=== PATIENT | female | born 1995 | race Caucasian/White ===

== ENCOUNTER 2017-03-30 21:33 | Observation (INO) ==
[2017-03-30 22:13] LABS: Amphetamine Screen,Urine Negative ng/mL (Cutoff=1000); Barbiturate Screen,Urine Negative ng/mL (Cutoff=200); Benzodiazepines Screen,Urine Negative ng/mL (Cutoff=200); Cannabinoid Screen,Urine Negative ng/mL (Cutoff = 50); Cocaine Screen,Urine Negative ng/mL (Cutoff= 300); Opiate Screen,Urine Negative ng/mL (Cutoff=300); Phencyclidine Screen,Urine Negative ng/mL (Cutoff=25)
--- NOTE | 2017-03-30 23:16 | OB/GYN History & Physical ---
Date of Encounter: 03/31/17 Time of Encounter: 23:13 Assessment and Plan (1) 39 weeks gestation of Status: Acute (2) Uterine contractions Status: Acute SVE unchanged after several repeat exams. Discharge home with precautions. History of Present Illness Chief complaint: contractions HPI: Ms. mendoza is a 21 year old female presenting at 39w6d with c/o contractions every 4-6 minutes since 7:30 this evening. She reports having so much pain with the contractions that she is nauseated. She denies any other complaints. Good FM. This has been uncomplicated. GBS negative Blood type A positive Hep B negative RPR negative Hep C negative Rubella immune HIV negative Past Med Surg Social Fam HX - Past Medical History Medical history: no medical history Psychiatric history: anxiety, depression - Social History Smoking Status: Never smoker Smokeless Tobacco Status: No Alcohol use: none - Family History Mother Hx Family Cardiac Disorders: Yes (HTN) Obstetrical History - Pregnancies : 1 Medications and Allergies Ferrous Sulfate [Iron] 1 tab PO DAILY 03/30/17 [History] Vit/Iron Fumarate/FA [ Tablet] 1 tab PO DAILY 03/30/17 [History ] 3 Allergy/AdvReac Type Severity Reaction Status Date / Time Penicillins Allergy Rash Verified 03/30/17 21:48 sulfamethoxazole Allergy Swelling Verified 03/30/17 21:48 [From Bactrim] of Lip/Tongue/Throat trimethoprim [From Bactrim] Allergy Swelling Verified 03/30/17 21:48 of Lip/Tongue/Throat Review of System OB All systems PM: reviewed and no additional remarkable complaints except as stated Exam - Constitutional Constitutional: well developed, well nourished, moderate distress - HEENT HEENT: Mucus Membranes Moist - Lungs Respiratory exam: CTAB - Cardiovascular Cardiovascular exam: RRR - Abdomen Abdomen: Present: gravid, non tender - Extremities Extremities exam: normal inspection - Vulva Vulva: bilateral: normal - Vagina Vagina: Present: normal moisture - Cervix Dilation: 3 Effacement: 90 Station: -1 - Uterus Uterus exam: Present: normal size - Anus/Rectum Anus/Rectum: Present: normal perianal skin Results All other labs normal. - VTE Reasons for not Prescribing Prophylaxis: Treatment not Indicated - Low risk for VTE
== END 2017-03-31 01:38 | disposition home or self-care (01) ==
LOC: 1NENULAB
PROVIDERS: ADMIT Obstetrics & Gynecology; ATTEND Obstetrics & Gynecology

== ENCOUNTER 2017-03-31 21:30 | Inpatient (IN) ==
[~2017-03-31 21:30] MED LIST: *HR* Nalbuphine 20 MG/ML AMPUL IVP PRN; Famotidine 20 MG/2 ML VIAL IVP PRN; Metoclopramide 10 MG/2 ML VIAL IVP PRN; Naloxone 0.4 MG/ML INJ IVP PRN; Ringers Solution, Lactated 1,000 ML IVC SCH
[2017-03-31 21:59] LABS: Basophils % 0.2 %; Eosinophils % 0.1 %; Hematocrit 35.8 % (35.3-44.9); Hemoglobin 11.6 g/dL (11.5-15.4); Immature Granulocytes % 0.6 % (0-4); Lymphocytes # 1.7 K/mcL (0.6-4.6); Lymphocytes % 13.4 %; Mean Corpuscular HGB Conc 32.4 g/dL (31.6-35.5); Mean Corpuscular Hemoglobin 29.8 pg (28.0-33.3); Mean Platelet Volume 12.9 fL (9.4-12.4); Monocytes # 0.6 K/mcL (0.0-1.3); Monocytes % 4.9 %; Neutrophils # 10.2 K/mcL (1.6-8.9); Platelet Count 255 K/mcL (140-400); Red Blood Count 3.89 M/mcL (3.82-4.97); Red Cell Distribution Width 13.5 % (11.5-14.5); Segmented Neutrophils % 80.8 %
[2017-03-31 22:12] LABS: Amphetamine Screen,Urine Negative ng/mL (Cutoff=1000); Barbiturate Screen,Urine Negative ng/mL (Cutoff=200); Benzodiazepines Screen,Urine Negative ng/mL (Cutoff=200); Cannabinoid Screen,Urine Negative ng/mL (Cutoff = 50); Cocaine Screen,Urine Negative ng/mL (Cutoff= 300); Opiate Screen,Urine Negative ng/mL (Cutoff=300); Phencyclidine Screen,Urine Negative ng/mL (Cutoff=25)
[2017-03-31] MEDS ORDERED: Epidural Premix (fent/bupiv) 110 ML EP SCH (22:15)
[2017-03-31] MEDS ORDERED: Epidural Premix (fent/bupiv) 110 ML EP ONE (22:16)
--- NOTE | 2017-03-31 22:34 | OB/GYN History & Physical ---
Date of Encounter: 03/31/17 Time of Encounter: 22:15 Assessment and Plan (1) 40 weeks gestation of Current visit: Yes Status: Acute (2) Uterine contractions Current visit: Yes Status: Acute IUP at 40 weeks GA Early labor GBS negative intact membranes with bulging bag Fetus Category I tracing Plan: Admit to L&D IV bolus followed by maintenance fluids Routine labs CEFM VS per protocol May have nubain and/or epidural for pain control prn 1000ml LR bolus for epidural Anesthesia consult for epidural Anticipate POC per consult with Dr. Henry. History of Present Illness Chief complaint: Contractions HPI: Ms. Frias is a 21 year old , EDB 03/31/2017 by LMP 40 weeks gestation, who presents with continued contractions from previous visit yesterday. 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 Denies PMH PSH includes tonsillectomy and remote colonoscopy (she reports was part of a workup for rectal bleeding). Alliergies to PCN (rash) and bactrim (swelling of lips/tongue/throat) Current medications include PNV and iron supplementation labs are as follows: A+/antibody negative Parvovirus: IgG 3.70 IgM 0.25 - indicates immunity GBS negative Hep B negative Hep C negative RPR NR GC/CL negative Rubella immune Varicella immune Past Med Surg Social Fam HX - Past Medical History Medical history: no medical history Psychiatric history: anxiety, depression - Past Surgical History Surgical History: other (tonsillectomy) - Social History Smoking Status: Never smoker Smokeless Tobacco Status: No Alcohol use: none Drug use: none - Family History Mother Hx Family Cardiac Disorders: Yes (HTN) Obstetrical History - Pregnancies : 1 Para: 0 Term: 0 : 0 Ab's: 0 Livin - History/Complications History/Complications: Category I tracing baseline 150 with accelerations moderate variability toco ctx q 2-3 minutes Medications and Allergies Ferrous Sulfate [Iron] 1 tab PO DAILY 03/30/17 [History] Vit/Iron Fumarate/FA [ Tablet] 1 tab PO DAILY 03/30/17 [History ] 3 Allergy/AdvReac Type Severity Reaction Status Date / Time Penicillins Allergy Rash Verified 03/31/17 21:16 sulfamethoxazole Allergy Swelling Verified 03/31/17 21:16 [From Bactrim] of Lip/Tongue/Throat trimethoprim [From Bactrim] Allergy Swelling Verified 03/31/17 21:16 of Lip/Tongue/Throat Review of System OB All systems PM: reviewed and no additional remarkable complaints except as stated Exam - Vital Signs Vital signs: Initial Vital Signs Temp Pulse Resp BP 97.4 F L 117 16 134/86 03/31/17 21:23 03/31/17 21:23 03/31/17 21:23 03/31/17 21:23 - Constitutional Constitutional: well developed, well nourished, average body habitus, moderate distress - HEENT HEENT: PERRL, Normocephaly, Mucus Membranes Moist - Neck Neck exam: full ROM, normal inspection, trachea midline - Lungs Respiratory exam: CTAB - Cardiovascular Cardiovascular exam: RRR, +S1, +S2 - Breasts Breast: bilateral: normal - Abdomen Abdomen: Present: bowel sounds normal, gravid, non tender - Extremities Extremities exam: full ROM, warm, radial pulses palpable and symmetrical Deep Tendon Reflex Grade: 2+ Normal - Cervix Dilation: 4 (Per RN) Effacement: 100 (Per RN) Station: -2 - Uterus Uterus exam: Present: normal size, normal contour Results Result Diagrams: 03/31/17 21:50 Abnormal lab results WBC 12.6 K/mcL (4.3-11.1) H 03/31/17 21:50 MPV 12.9 fL (9.4-12.4) H 03/31/17 21:50 Neutrophils # 10.2 K/mcL (1.6-8.9) H 03/31/17 21:50 All other labs normal. - VTE Reasons for not Prescribing Prophylaxis: Treatment not Indicated - Low risk for VTE
--- NOTE | 2017-03-31 22:57 | Anesthesia Evaluation PreOp ---
Date of Encounter: 03/31/17 Time of Encounter: 22:20 - Past History Planned Operation: zoe Cardiac History: Denies any Significant Hx Pulmonary History: Denies Any Significant HX CLIENT DEVELOPMENT DIRECTOR History: Denies Any Significant HX Other Medical History: Denies Any Significant HX Anesthesia History: No Prior Anesthetic Complications : Yes Test: Positive Alcohol Use: none Drug use: none Medications and Allergies Ferrous Sulfate [Iron] 1 tab PO DAILY 03/30/17 [History] Vit/Iron Fumarate/FA [ Tablet] 1 tab PO DAILY 03/30/17 [History ] 3 Allergy/AdvReac Type Severity Reaction Status Date / Time Penicillins Allergy Rash Verified 03/31/17 21:16 sulfamethoxazole Allergy Swelling Verified 03/31/17 21:16 [From Bactrim] of Lip/Tongue/Throat trimethoprim [From Bactrim] Allergy Swelling Verified 03/31/17 21:16 of Lip/Tongue/Throat - Meds/Allergy Pre-op Review Medications Reviewed: Yes Allergies Reviewed: Yes Beta Blockers on Current Med List: No Anesthesia Results - Labs 03/31/17 21:50 Anesthesia Exam Height: 64 Weight: 73.8 Pain Scale: 8 - HEENT Pupil (Motor): Pupils equal Mallampati: II Teeth: Normal Oral Opening: Greater than 3 - CLIENT DEVELOPMENT DIRECTOR LOC: Oriented CLIENT DEVELOPMENT DIRECTOR Motor: Normal RUE, Normal LUE, Normal RLE, Normal LLE, Normal Face CLIENT DEVELOPMENT DIRECTOR Sensory: Normal: RUE, LUE, RLE, LLE, Face - Cardiac Rhythm: Regular Murmur: None JVD: No Carotid Bruit: No - Pulmonary Breath Sounds: bilateral Clear Respiratory Effort: Symmetrical Anesthesia Assess/Plan ASA Score: 1 Modified [place]way Scale for Level of Consciousness: Cooperative, oriented, and tranquil Anesthetic Plan: Regional Autologous Blood: No Monitoring Plan: Standard Monitors
--- NOTE | 2017-03-31 22:59 | Anesthesia Procedures ---
Date of Encounter: 03/31/17 Time of Encounter: 22:20 Procedures: Anesthesia - Epidural/Spinal Patient ID/Chart reviewed: Yes Patient examined: Yes OB Eval: Gestational age: 40 OB Eval: : 1 OB Eval: Hx Para: 0 OB Eval: Dilated at (cm): 4 OB Eval: Contractions: Non-stressed pattern Consent Obtained: Yes Supplemental Oxygen: None/Room Air Site Prep: Aseptic Technique, Sterile prep and drape, Povidone-Iodine 1% Patient position: upright Local Anesthetic: Lidocaine 1% Amount of Local Anesthetic used: 3 Touhy Needle Gauge: 18 Touhy Needle Depth (cm): 6 Catheter Depth at Skin (cm): 7 Test Dose (1.5% Lido + Epi): Volume given (mls): 3 Test Dose Result: Negative Loading Dose Administered: Thru Catheter Infusion Rate (mls/hr): [address]: Tegaderm, Tape Interspace Used: L4-L5 Loss of Resistance (ARSENIO): Yes Blood: No CSF: No Paresthesia: No Procedure: no complications tolerated well
--- NOTE | 2017-04-01 03:13 | OB Labor Progress Note ---
Date of Encounter: 04/01/17 Time of Encounter: 03:09 Labor Progress Note - Subjective Subjective: Pt reports she is comfortable with epidural. Requesting family members to come to bedside. - Cervix Cervix: 6-7/100/0 - Heart Tones Heart Tones: Baseline 150 with accelerations Moderate variability Few variable decelerations - [place]: ctx q 2-5 minutes Objective - Vital Signs Vital Signs: Vital Signs Temp Pulse Resp BP 03/31/17 21:23 97.4 F L 117 16 134/86 Intake and Output 03/31/17 03/31/17 04/01/17 15:59 23:59 07:59 Other: Weight 73.8 kg - Lab Result Diagrams: 03/31/17 21:50 Labs: Abnormal lab results WBC 12.6 K/mcL (4.3-11.1) H 03/31/17 21:50 MPV 12.9 fL (9.4-12.4) H 03/31/17 21:50 Neutrophils # 10.2 K/mcL (1.6-8.9) H 03/31/17 21:50
--- NOTE | 2017-04-01 03:21 | OB Labor Progress Note ---
Date of Encounter: 04/01/17 Time of Encounter: 03:09 Labor Progress Note - Subjective Subjective: Pt reports pain well controlled with epidural. Slight increase in pelvic pressure. - Cervix Cervix: 6-7/100/0 - Heart Tones Heart Tones: Baseline 150 Moderate variability Accelerations present Variable decelerations intermittent Category II tracing - [place]: ctx q 2-5 minutes - Interventions Interventions: Assessment: 21 yo IUP at 40 weeks 1 day Active labor GBS negative Fetus category II Decreased urine output - Plan Plan: 500ml LR bolus Expectant management Anticipate
--- NOTE | 2017-04-01 05:10 | OB Labor Progress Note ---
Date of Encounter: 04/01/17 Time of Encounter: 05:07 Labor Progress Note - Subjective Subjective: Pt comfortable with epidural. Denies any changes since previous exam. - Cervix Cervix: 6-7/100/-1 - Heart Tones Heart Tones: Baseline 150 Moderate variability Accelerations present Decelerations absent - [place]: Ctx every 6-10 minutes - Interventions Interventions: Start pitocin per protocol for no cervical change along with dysfunctional labor pattern - Plan Plan: Assessment: 21 yo IUP at 40 weeks 1 day Active labor GBS negative Fetus category I Dysfunctional labor pattern Decreased urine output resolved with IV hydration Plan: Start pitocin per protocol Expectant management Anticipate POC per consult with Dr. Henry
[2017-04-01] MEDS ORDERED: Oxytocin 20 units/ LR 1000 mL 20 UNIT/1,000 ML BAG IVC SCH ×2 (05:15→18:03)
[2017-04-01] MEDS ORDERED: Epidural Premix (fent/bupiv) 110 ML EP ONE (05:18)
[2017-04-01] MEDS ORDERED: *HR* ROPIVACAINE 1% PF 100 MG/10 ML VIAL ONE (07:37)
[2017-04-01] MEDS ORDERED: *HR* FentaNYL (PF) 100 MCG/2 ML VIAL ONE (07:38)
--- NOTE | 2017-04-01 07:47 | Anesthesia Progress Note ---
Date of Encounter: 04/01/17 Time of Encounter: 07:45 Anesthesia Note - Note Note: 04/01/17 07:45 epidural bolus for break through pain fentanyl 100 mcg ropivicaine 5 cc 0.2%
--- NOTE | 2017-04-01 09:02 | OB Labor Progress Note ---
Date of Encounter: 04/01/17 Time of Encounter: 09:00 Labor Progress Note - Subjective Subjective: Pt resting with epidural in place. Denies pain. - Cervix Cervix: 9/100/0 - Heart Tones Heart Tones: 140 bpm, moderate variability, + accels, variable decelerations - [place]: 2-3 min - Interventions Interventions: SVE AROM copious amount of clear fluid. - Plan Plan: Continue Pitocin as needed. Peanut ball positioning Anticipate
[2017-04-01] MEDS ORDERED: Ondansetron 4 MG/2 ML VIAL IVP PRN (10:07)
[2017-04-01] MEDS ORDERED: Lidocaine 1% 20 ML MDV ONE (12:09)
--- NOTE | 2017-04-01 12:46 | OB/GYN Procedure Note ---
Delivery - Delivery Date: 04/01/17 Provider: Anne Phelps (RAFY Weber) Intrapartum events: meconium Delivery induction: none Delivery augmentation: rupture of membranes, pitocin Delivery monitor: external FHT Anesthesia: epidural Estimated Blood Loss: 200 - Infant (s) A Delivery Date: 04/01/17 Delivery Time: 11:59 Presentation: vertex Position: OA Route of delivery: Gender: Female Viability: Viable Pounds: 7 Ounces: 13 Weight Gram: 3.555 kg at 1 minute: 8 at 5 mins: 9 Shoulder Dystocia: not encountered Specimens collected: cord blood Placenta: spontaneous Cord: 3 umbilical vessels - Repair Episiotomy: none Laceration Description: Perineal - 1st Degree - Disposition Mom disposition: stable in LDR [place] disposition: stable in LDR - Comments Comments: This is a 21 yo G1 now P1 who was admitted for active labor. She progressed with pitocin augmentation and AROM to the second stage of labor. Fluid was noted to be light meconium upon AROM. She pushed for 1 hour and 49 minutes. She delivered a viable female , OA over a 1st degree laceration. No nuchal was identified. The mouth and nares were suctioned on mom's belly. Cord was clamped and cut after pulsing stopped. Apgars were 8 at 1 minute and 9 at 5 minutes. Weight was 3555g. The placenta was delivered spontaneously with a 3- vessel cord. Inspection revealed a 1st degree perineal laceration. The laceration was repaired with 3-0 vicryl and 4-0 vicryl. The repair was done under epidural anesthesia with additional local anesthesia. EBL 200ml. There were no complications during the procedure. Mom and baby cuddling and bonding following delivery. This delivery was observed by RAFY Weber
[2017-04-01] MEDS ORDERED: Lanolin 7 G OINT...G. TP PRN (18:03)
[2017-04-01] MEDS ORDERED: Benzocaine/Menthol 56 GM AEROSOL SPRAY TP PRN (18:03)
[2017-04-01] MEDS ORDERED: Measles/Mumps/Rubella Vacc 0.5 ML VIAL SQ PRN (18:03)
[2017-04-01] MEDS ORDERED: Acetaminophen 325 MG TABLET PO PRN (18:03)
[2017-04-01] MEDS: Ibuprofen 600 MG TABLET PO PRN (20:26)
[2017-04-02] MEDS: Ibuprofen 600 MG TABLET PO PRN (07:38)
[2017-04-02 08:07] VITALS: BP 93/55
--- NOTE | 2017-04-02 08:18 | Discharge Summary ---
Date of Encounter: 04/02/17 Time of Encounter: 08:17 - Discharge Diagnosis (1) Vaginal delivery Priority: Primary Status: Acute Comments: Meeting all milestones. [place] light. Patient well. No concerns or questions. Pain adequately controlled. Patient urinating with no issues. No BM but passing flatus. Mood positive. Plan to DC patient today and follow up in office in 4-6 weeks. (2) Mother currently breast-feeding Priority: Secondary Status: Acute Comments: Patient with out difficulty. Has breast pump at home. - Discharge Medications Prescriptions: Ibuprofen 600 mg PO Q6HR PRN #30 tablet PRN Reason: Pain Docusate [Colace] 100 mg PO DAILY #20 capsule Home Medications: Ferrous Sulfate [Iron] 1 tab PO DAILY 03/30/17 [History] Vit/Iron Fumarate/FA [ Tablet] 1 tab PO DAILY 03/30/17 [History ] Docusate [Colace] 100 mg PO DAILY #20 capsule 04/02/17 [Rx] Ibuprofen 600 mg PO Q6HR PRN #30 tablet 04/02/17 [Rx] Allergies/Adverse Reactions: 3 Allergy/AdvReac Type Severity Reaction Status Date / Time Penicillins Allergy Rash Verified 03/31/17 21:16 sulfamethoxazole Allergy Swelling Verified 03/31/17 21:16 [From Bactrim] of Lip/Tongue/Throat trimethoprim [From Bactrim] Allergy Swelling Verified 03/31/17 21:16 of Lip/Tongue/Throat Data Procedures and tests throughout hospitalization: Laboratory Tests 03/31/17 03/31/17 21:50 21:55 WBC 12.6 H RBC 3.89 Hgb 11.6 Hct 35.8 MCV 92.0 MCH 29.8 MCHC 32.4 RDW 13.5 Plt Count 255 MPV 12.9 H Immature Gran % 0.6 Seg Neutrophils % 80.8 Lymphocytes % 13.4 Monocytes % 4.9 Eosinophils % 0.1 Basophils % 0.2 Neutrophils # 10.2 H Lymphocytes # 1.7 Monocytes # 0.6 Eosinophils # 0.0 Basophils # 0.0 Urine Opiates Screen Negative Ur Barbiturates Screen Negative Ur Phencyclidine Scrn Negative Ur Amphetamines Screen Negative U Benzodiazepines Scrn Negative Urine Cocaine Screen Negative U Marijuana (THC) Screen Negative Date of admission: 03/31/17 21:30 Primary care physician: PCP NONE Consults: 04/01/17 18:03 Consult to Recycler Forklift Driver Truck Driver [CONS] Routine Comment: Vaginal delivery, consult needed Discharging clinician: Anne Vazquez Anticipated date of discharge: 04/02/17 - Patient Status Disposition: Home, Self-Care Condition: Good Functional capacity at discharge: independent ambulation Overall status at discharge: patient is progressing back to baseline - Discharge Instructions Instructions: Vaginal Delivery (DC) Follow Up With: SANITATION SUPERINTENDENT Sylvia [Provider Group] Hilda Card CNM [Non-Partnered Physician] - Additional Instructions: Perineal Care: Always wipe front to back Change your pad frequently Use your muna bottle with warm water and spray front to back Do not douche, use tampons, have sexual intercourse or put anything in your vagina for 4-6 weeks after delivery Bleeding: Vaginal bleeding can last up to 6 weeks Your menstrual period may return as early as 6 weeks after you are discharged from the hospital Harley/Stitches Care: Vaginal Delivery Vaginal stitches will dissolve within 4-6 weeks Follow perineal care instructions Care Stitches will dissolve on their own If you have harley, they will need to be removed in the doctors office within 5-7 days. You may shower with stitches or harley Drip plan or soapy water over the incision to clean. Pat dry gently with a clean towel. Make sure you completely dry under the skin folds DO NOT USE powders, lotions, rubbing alcohol or hydrogen peroxide on or around your incision. This will slow your wound healing It is normal to have soreness, burning, tingling, itchiness and/or numbness as your incision heals Activity: Rest frequently Do not lift anything heavier than a gallon of milk, up to 10-15 pounds No driving for 1-2 weeks for Vaginal delivery No driving for 2-4 weeks for delivery Take stairs slowly, one at a time Gradually increase your daily activity until you are back to your normal routine Do not exercise until you have had your follow-up appointment Bathing: Take a shower daily Do not take a tub bath for the first 4 weeks Diet: Drink plenty of water and fruit juices Eat a well-balanced diet with foods high in fiber such as fruits and vegetables Depression: Your hormones have a major impact on your feelings and emotions. Hormone imbalance may cause changes in your mood, creating unfamiliar thoughts and actions. Support is available to help you understand and cope with these feelings and mood changes. If you answer yes to any of the following questions, please call your health care provider: Are you having trouble sleeping? Are you feeling isolated? Have you lost your appetite? Are you having thoughts of hurting yourself or others? WARNING SIGNS: Heavy bleeding from the vagina (blood is bright red and soaks a sanitary pad in an hour or less.) Passing a blood clot larger than your fist Discharge from the vagina that has a bad odor Temperature over 100.4 F, or if you feel cold and have chills An episiotomy site that is warm, swollen or oozing. Use a mirror if needed Urination (pee) that is painful, very red and swollen or leaking fluid An incision that is painful, very red and swollen and leaking fluid An incision that has come open Breasts that are painful or full with flu like symptoms Redness, warmth or swelling in the calf of your leg Trouble breathing, dizziness, visual disturbance or faintness *Notify your health care provider immediately or go to the nearest Emergency Room if you experience any of the above signs.* To contact the nurses station 24 hours a day, For non-urgent, routine questions, please call the office at - Diet and Activity Activity: increase activity as tolerated Diet: regular diet Hospital Course Reason for admission: active labor Delivery: Episiotomy: none Other procedures: none complications: none Discharge diagnosis: IUP at term delivered baby: female Hospital course: - Delivery Date: 04/01/17 Provider: Anne Phelps CNM) Intrapartum events: meconium Delivery induction: none Delivery augmentation: rupture of membranes, pitocin Delivery monitor: external FHT Anesthesia: epidural Estimated Blood Loss: 200 - Infant (s) Infant A Infant Delivery Date: 04/01/17 Delivery Time: 11:59 Presentation: vertex Position: OA Route of delivery: Gender: Female Viability: Viable Pounds: 7 Ounces: 13 Weight Gram: 3.555 kg at 1 minute: 8 at 5 mins: 9 Shoulder Dystocia: not encountered Specimens collected: cord blood Placenta: spontaneous Cord: 3 umbilical vessels - Repair Episiotomy: none Laceration Description: Perineal - 1st Degree - Comments Comments: This is a 21 yo G1 now P1 who was admitted for active labor. She progressed with pitocin augmentation and AROM to the second stage of labor. Fluid was noted to be light meconium upon AROM. She pushed for 1 hour and 49 minutes. She delivered a viable female infant, OA over a 1st degree laceration. No nuchal was identified. The mouth and nares were suctioned on mom's belly. Cord was clamped and cut after pulsing stopped. Apgars were 8 at 1 minute and 9 at 5 minutes. Weight was 3555g. The placenta was delivered spontaneously with a 3- vessel cord. Inspection revealed a 1st degree perineal laceration. The laceration was repaired with 3-0 vicryl and 4-0 vicryl. The repair was done under epidural anesthesia with additional local anesthesia. EBL 200ml. There were no complications during the procedure. Mom and baby cuddling and bonding following delivery. This delivery was observed by RAFY Weber Time Attestation: Total time spent providing and/or coordinating discharge services: Time Spent: Less than 30 minutes Exam - Constitutional Vitals: Temp Pulse Resp BP Pulse Ox 98.0 F 80 16 93/55 98 04/02/17 08:05 04/02/17 08:05 04/02/17 08:05 04/02/17 08:05 04/02/17 04:00 General appearance IM: A&O X 3, no acute distress - Respiratory Respiratory exam: Present: CTAB - Cardiovascular Cardiovascular exam IM: Present: RRR - GI/Abdominal GI/Abdominal exam IM: normal bowel sounds, soft - Uterine Tone: Firm Uterus Position: 3 Fingers Below Umbilicus, Midline - Extremities Exam Extremities exam IM: Present: normal inspection - Neurological Exam Neurological exam: alert, oriented X3 - Attending Attestation I examined this patient and my medical decision-making was reviewed with the Resident Physician. I agree with the documented findings, disposition and treatment plan as described. Angelika Vazquez CNM
[2017-04-02] MEDS ORDERED: Prenatal Vit/FA 1 EACH TABLET PO SCH (09:00)
== END 2017-04-02 14:43 | disposition home or self-care (01) | DRG 775 ==
LOC: 1NENULAB → 1NENUOBS 04-01 12:41
PROVIDERS: ADMIT Advanced Practice Midwife; ATTEND Advanced Practice Midwife

== ENCOUNTER 2019-06-02 05:56 | Inpatient (IN) ==
[2019-06-02] MEDS ORDERED: Naloxone 0.4 MG/ML INJ IVP PRN (05:57)
[2019-06-02] MEDS ORDERED: Lidocaine 1% 20 ML MDV INFILT PRN (05:57)
[2019-06-02] MEDS ORDERED: Famotidine 20 MG/2 ML VIAL IVP PRN (05:57)
[2019-06-02] MEDS ORDERED: *HR* FentaNYL (PF) 100 MCG/2 ML VIAL IVP PRN (05:57)
[2019-06-02] MEDS ORDERED: Metoclopramide 10 MG/2 ML VIAL IVP PRN (05:57)
[2019-06-02] MEDS ORDERED: ceFAZolin 1,000 MG in Water for inj. (sterile) 10 ML IVP SCH (06:00)
[2019-06-02] MEDS ORDERED: Oxytocin 20 units/ LR 1000 mL 20 UNIT/1,000 ML BAG IVC SCH ×2 (06:00→18:09)
[2019-06-02] MEDS ORDERED: Ringers Solution, Lactated 1,000 ML IVC SCH (06:00)
[2019-06-02 06:43] LABS: Basophils % 0.5 %; Eosinophils # 0.1 K/mcL (0.0-0.6); Eosinophils % 0.9 %; Hematocrit 36.6 % (35.3-44.9); Hemoglobin 12.1 g/dL (11.5-15.4); Immature Granulocytes % 0.7 % (0-4); Lymphocytes # 2.4 K/mcL (0.6-4.6); Mean Corpuscular HGB Conc 33.1 g/dL (31.6-35.5); Mean Corpuscular Hemoglobin 30.7 pg (28.0-33.3); Mean Corpuscular Volume 92.9 fL (83.0-100.0); Mean Platelet Volume 12.8 fL (9.4-12.4); Monocytes # 0.6 K/mcL (0.0-1.3); Monocytes % 6.8 %; Neutrophils # 5.6 K/mcL (1.6-8.9); Platelet Count 179 K/mcL (140-400); Red Blood Count 3.94 M/mcL (3.82-4.97); Red Cell Distribution Width 12.7 % (11.5-14.5); Segmented Neutrophils % 64.1 %; White Blood Count 8.8 K/mcL (4.3-11.1)
[2019-06-02 08:27] LABS: Amphetamine Screen,Urine Negative ng/mL (Cutoff=1000); Barbiturate Screen,Urine Negative ng/mL (Cutoff=200); Benzodiazepines Screen,Urine Negative ng/mL (Cutoff=200); Cannabinoid Screen,Urine Negative ng/mL (Cutoff = 50); Cocaine Screen,Urine Negative ng/mL (Cutoff= 300); Opiate Screen,Urine Negative ng/mL (Cutoff=300); Phencyclidine Screen,Urine Negative ng/mL (Cutoff=25)
[2019-06-02] MEDS ORDERED: Epidural Premix (fent/bupiv) 110 ML EP ONE (10:58)
[2019-06-02] MEDS ORDERED: Ropivacaine/PF 0.2% 20 ML VIAL ONE (10:59)
[2019-06-02] MEDS ORDERED: *HR* FentaNYL (PF) 100 MCG/2 ML VIAL ONE (10:59)
[2019-06-02] MEDS ORDERED: EPHEDrine 50 MG/ML VIAL IVP PRN (11:51)
[2019-06-02] MEDS ORDERED: Epidural Premix (fent/bupiv) 110 ML EP SCH (12:00)
[2019-06-02] MEDS ORDERED: Acetaminophen 325 MG TABLET PO PRN (18:09)
[2019-06-02] MEDS ORDERED: Lanolin 7 G OINT...G. TP PRN (18:09)
[2019-06-02] MEDS ORDERED: Oxytocin 20 units/ LR 1000 mL 20 UNIT/1,000 ML BAG IVC ONE (18:09)
[2019-06-02] MEDS ORDERED: Benzocaine/Menthol 56 GM AEROSOL SPRAY TP PRN (18:09)
[2019-06-02] MEDS: Ibuprofen 600 MG TABLET PO PRN (21:14)
[2019-06-03 07:53] VITALS: BP 103/70
[2019-06-03] MEDS: Ibuprofen 600 MG TABLET PO PRN (08:32)
[2019-06-03] MEDS ORDERED: Prenatal Vit/FA 1 EACH TABLET PO SCH (09:00)
== END 2019-06-03 16:46 | disposition home or self-care (01) | DRG 807 ==
LOC: 1NENULAB 05:56 → 1NENUOBS 18:06
PROVIDERS: ADMIT Obstetrics & Gynecology; ATTEND Obstetrics & Gynecology